=== PATIENT | female | born 1980 | race Caucasian/White ===

== ENCOUNTER 2018-05-03 09:45 | Outpatient (REF) | payer OTHER, SELFPAY ==
--- NOTE | 2018-05-03 09:00 | PAPFT_PTH ---
PATIENT: Estefania Castaneda LOC: [facility] U#:[id number] AGE/SX: 37/F ROOM: RE05/03/[address]: JUAN M Cruz : 1980 BED: DIS: 05/03/2018 SPEC #: [id number] RECD: 05/03/18 12:46 STATUS: SENTHIL REQ #: [id number] KAREN: 05/03/18 09:[address]: Adeline Munoz DEPT: [facility] Cytology RECD BY: Rossy Stone ENTERED: 05/03/18 12:46 SP TYPE: PAPFT OTHR DR: Esperanza Whitehead Tissues: 1 - CX/ENDOCX FOR PAP SMEARS Procedures: PAP THIN PREP/UVM Screening Comments: [id number]
[2018-05-04 13:11] LABS: Chlamydia Result Negative; GC Result Negative; Specimen Description CERVIX
== END 2018-05-03 10:05 ==
LOC: LBN 09:45
PROVIDERS: PCP Family Medicine; Visit Provider Nurse Practitioner Family
DX: Z11.3 Encounter for screening for infections with a predominantly sexual mode of transmission (principal); Z12.4 Encounter for screening for malignant neoplasm of cervix
CPT/HCPCS: 87491; 87591; 88142

== ENCOUNTER 2018-09-26 00:42 | Outpatient (CLI) | payer OTHER, SELFPAY ==
--- NOTE | 2018-09-26 12:30 | DI.MAMMO_ITS ---
SYMPTOMS/DIAGNOSIS: SCREENING, Z12.31 MAMMOGRAMS: Mammograms were interpreted according to the usual protocol including computer analysis with CAD system, tomosynthesis and C view imaging. Comparison is with the prior examinations. No suspicious masses or microcalcifications are seen. There is a left retroareolar nodule again present with a biopsy clip in stable position. Overall, there has been significant change in appearance of the mammogram compared to the prior examination. IMPRESSION: No evidence for malignancy. Yearly mammography is recommended. Category 2, breast density B. MQSA ASSESSMENT OF FINDINGS: Negative with benign findings. Category 2. Patient will receive a letter notifying them of these results. BI-RADS category B. There are scattered areas of fibroglandular density.
== END 2018-09-26 01:02 ==
PROVIDERS: PCP Family Medicine; Visit Provider Nurse Practitioner Family
DX: Z12.31 Encounter for screening mammogram for malignant neoplasm of breast (principal)
CPT/HCPCS: 77063; 77067

== ENCOUNTER 2019-05-27 09:37 | Outpatient (REF) | payer OTHER, SELFPAY ==
--- NOTE | 2019-05-27 08:50 | PAPFT_PTH ---
PATIENT: Estefania Castaneda LOC: [facility] U#:[id number] AGE/SX: 38/F ROOM: RE05/27/[address]: Tracy George NP : 1980 BED: DIS: 05/27/2019 SPEC #: [id number] RECD: 05/27/19 12:54 STATUS: MOISÉSEsthela REDora #: [id number] KAREN: 05/27/19 08:[address]: Tracy George NP DEPT: [facility] Cytology RECD BY: Rossy Stone ENTERED: 05/27/19 12:55 SP TYPE: PAPFT OTHR DR: Esperanza Whitehead Tissues: 1 - CX/ENDOCX FOR PAP SMEARS Procedures: PAP THIN PREP/UVM Screening HPV DNA PROBE Comments: [id number]
== END 2019-05-27 09:57 ==
LOC: LBN 09:37
PROVIDERS: PCP Family Medicine; Visit Provider Nurse Practitioner Women's Health
DX: Z12.4 Encounter for screening for malignant neoplasm of cervix (principal); Z11.51 Encounter for screening for human papillomavirus (HPV)
CPT/HCPCS: 88142; 87624

== ENCOUNTER 2019-10-03 01:21 | Outpatient (CLI) | payer OTHER, SELFPAY ==
--- NOTE | 2019-10-03 09:19 | DI.MAMMO_ITS ---
EXAM: MG MAMMO SCREENING CLINICAL HISTORY: screening,z12.39, family h/o breast ca,z80.3 TECHNIQUE: Bilateral full field digital CC and MLO mammographic images were obtained with 3D tomosyn thesis and utilizing computer aided detection (CAD). COMPARISON: Available for comparison. FINDINGS: Masses/Architectural Distortion: There is again seen a retroareolar nodule with a biopsy clip in good position. No suspicious nodules are seen. Microcalcifications: No suspicious pleomorphic-type are seen. Skin Thickening/Nipple Retraction: None. IMPRESSION: 1. No significant interval change with no specific features of malignancy noted. 2. Unless there is more urgent need, screening mammography is recommended, as per [employer] [employer] guidelines. BI-RADS Category 2 - Benign Findings Breast Density - Category B - Scattered areas of fibroglandular density A negative radiographic report should not delay biopsy if a dominant or clinically suspicious mass is present. Up to ten percent of cancers are not identified on mammography. A negative report may reinforce clinical impression. Adenosis and dense breasts may obscure an underlying neoplasm. False positive reports average 6 to 10%. Patient will receive a letter notifying them of these results.
== END 2019-10-03 01:41 ==
PROVIDERS: PCP Family Medicine; Visit Provider Nurse Practitioner Women's Health
DX: Z12.31 Encounter for screening mammogram for malignant neoplasm of breast (principal); Z80.3 Family history of malignant neoplasm of breast
CPT/HCPCS: 77063; 77067

== ENCOUNTER 2020-01-27 18:17 | Outpatient (REF) | payer OTHER, SELFPAY ==
[2020-01-27 18:49] LABS: HCT 40.7 % (36.0-46.0); HGB 13.3 g/dL (11.2-15.7); MCH 28.1 pg (27.0-33.0); MCHC 32.7 % (32.0-36.0); MCV 85.9 fL (80-95); MPV 9.6 fL (8.0-11.0); Platelet Count 407 10^3/uL (130-400); RBC 4.74 10^6/uL (3.93-5.22); RDW 13.9 % (11.7-14.6)
[2020-01-27 19:24] LABS: Hemoglobin A1C 5.4 % (<5.7)
[2020-01-27 19:32] LABS: Anion Gap 9.8 mmol/L (3-11); BUN 13 mg/dL (7-18); CO2 26.2 mmol/L (21.0-32.0); CREATININE 0.65 mg/dL (0.55-1.02); Calcium 10.1 mg/dL (8.5-10.1); Chloride 103 mmol/L (98-107); Glucose 77 mg/dL (74-106); Potassium 4.1 mmol/L (3.5-5.1); Sodium 139 mmol/L (136-145); TSH (W/Ref FT4) 2.34 uIU/mL (0.36-3.74)
== END 2020-01-27 18:37 ==
LOC: NCHCN 18:17
PROVIDERS: PCP Family Medicine; Visit Provider Family Medicine
DX: R00.2 Palpitations (principal)
CPT/HCPCS: 80048; 85027; 83036; 84443

== ENCOUNTER 2020-01-29 01:30 | Outpatient (CLI) | payer OTHER, SELFPAY | END 2020-01-29 01:50 | PROVIDERS: PCP Family Medicine; Visit Provider Family Medicine | DX: R00.2 Palpitations (principal) | CPT/HCPCS: 93225 ==

== ENCOUNTER 2020-01-31 16:26 | Outpatient (CLI) | payer OTHER, SELFPAY ==
--- NOTE | 2020-02-03 10:02 | W.HOLTRPT ---
Date of service: 02/03/20 Time of Service: 10:02 Holter Monitor Report Referring Provider:: jase Indications:: palps Holter Monitor Note: This is a 48-hour Holter monitor with indication of palpitations. ?Patient was in normal sinus rhythm for the majority of the recording with an average heart rate of 90 bpm (60-138 bpm) ?There were 0 episodes of supraventricular tachycardia. There were rare PACs and PVCs. ?There are no episodes of ventricular tachycardia ?There are no episodes of atrial fibrillation, pauses greater than 3 seconds and no evidence of high degree heart block. ?Patient diary events described as palpitations were associated with normal sinus rhythm or sinus tachycardia
== END 2020-01-31 16:46 ==
PROVIDERS: PCP Family Medicine; Visit Provider Family Medicine
DX: R00.2 Palpitations (principal)
CPT/HCPCS: 93226

== ENCOUNTER 2020-10-05 01:02 | Outpatient (CLI) | payer OTHER, SELFPAY ==
--- NOTE | 2020-10-05 08:45 | DI.MAMMO_ITS ---
Exam(s) MAMMO SCREENING EXAM: MAMMO SCREENING CLINICAL HISTORY: screening,z12.39. TECHNIQUE: Bilateral full field digital CC and MLO mammographic images were obtained with 3D tomosyn thesis and utilizing computer aided detection (CAD). COMPARISON: Prior mammograms dating back to 2017, the most recent being September 2019. This 39-year-old patient underwent left breast biopsy approximately 3 years ago, apparently benign. FINDINGS: There has been no significant change in appearance and distribution of the fibroglandular tissue. Biopsy marker clip is again noted anteriorly within a small nodule in the left breast and this remain s unchanged in size and configuration. There are no new spiculated masses nor malignant appearing microcalcification groups. Small benign-appearing nodules posteriorly in both breasts are unchanged from prior studies and have appearance of benign intramammary lymph nodes. Posteriorly in the right breast there is a CAD design ation over benign calcification. There are no new malignant-appearing microcalcification groups in e ither breast. There is no significant architectural distortion nor skin thickening-retraction. IMPRESSION: No radiographic evidence of malignancy. Stable benign findings BI-RADS Category 2 - Benign Findings Breast Density - Category B - Scattered areas of fibroglandular density Breast density Category C or D implies that the patient has dense breast tissue. Dense breast tissue can make it harder to find cancer on a mammogram. Dense breast tissue is also associated with an incr eased risk of breast cancer. This information about the result of the mammogram report was provided to the patient to raise their awareness. Use this report when you speak with the patient about their risks for breast cancer, which includes their family history. At that time, you may recommend additional screening tests (Ultrasoun d or MRI) as these tests may add significant information. A negative radiographic report should not delay biopsy if a dominant or clinically suspicious mass is present. Up to ten percent of cancers are not identified on mammography. A negative report may reinforce clinical impression. Adenosis and dense breasts may obscure an underlying neoplasm. False positive reports average 6 to 10%. Patient will receive a letter notifying them of these results.
== END 2020-10-05 01:22 ==
PROVIDERS: PCP Family Medicine; Visit Provider Nurse Practitioner Family
DX: Z12.31 Encounter for screening mammogram for malignant neoplasm of breast (principal); Z80.3 Family history of malignant neoplasm of breast
CPT/HCPCS: 77063; 77067

== ENCOUNTER 2021-01-08 09:47 | Outpatient (REF) | payer OTHER, SELFPAY ==
[2021-01-09 01:42] LABS: COVID-19 RT-PCR UVMMC Result Negative (Negative)
== END 2021-01-08 09:48 | disposition home or self-care (01) ==
LOC: LBO 09:47
PROVIDERS: PCP Family Medicine; Visit Provider Nurse Practitioner Family
DX: Z20.822 Contact with and (suspected) exposure to COVID-19 (principal)
CPT/HCPCS: U0003

== ENCOUNTER 2021-02-26 11:49 | Outpatient (CLI) | payer OTHER, SELFPAY ==
[2021-02-27 03:54] LABS: COVID-19 RT-PCR UVMMC Result Negative (Negative)
== END 2021-02-26 11:50 | disposition home or self-care (01) ==
LOC: LBO 11:51
PROVIDERS: PCP Family Medicine; Visit Provider Nurse Practitioner Family
DX: Z20.822 Contact with and (suspected) exposure to COVID-19 (principal)
CPT/HCPCS: U0003

== ENCOUNTER → 2021-10-07 02:26 | Outpatient (CLI) | payer OTHER, SELFPAY ==
--- NOTE | 2021-10-07 06:30 | DI.MAMMO_ITS ---
Exam(s) MAMMO SCREENING EXAM: MAMMO SCREENING CLINICAL HISTORY: screening,z12.39. TECHNIQUE: Bilateral full field digital CC and MLO mammographic images were obtained with 3D tomosyn thesis and utilizing computer aided detection (CAD). COMPARISON: Prior mammograms were reviewed, the most recent being September 2020. FINDINGS: There has been no significant change in the appearance and distribution of the fibroglandular tissue. Biopsy marker clips again noted in a stable appearing nodule in the retroareolar region of the breast . There are no new spiculated masses nor malignant appearing microcalcification groups. Benign-appearing calcification posteriorly in the right breast is unchanged prior studies. There is no significant architectural distortion nor skin thickening-retraction. IMPRESSION: No radiographic evidence of malignancy. BI-RADS Category 1 - Negative Breast Density - Category B - Scattered areas of fibroglandular density Breast density Category C or D implies that the patient has dense breast tissue. Dense breast tissue can make it harder to find cancer on a mammogram. Dense breast tissue is also associated with an incr eased risk of breast cancer. This information about the result of the mammogram report was provided to the patient to raise their awareness. Use this report when you speak with the patient about their risks for breast cancer, which includes their family history. At that time, you may recommend additional screening tests (Ultrasoun d or MRI) as these tests may add significant information. A negative radiographic report should not delay biopsy if a dominant or clinically suspicious mass is present. Up to ten percent of cancers are not identified on mammography. A negative report may reinforce clinical impression. Adenosis and dense breasts may obscure an underlying neoplasm. False positive reports average 6 to 10%. Patient will receive a letter notifying them of these results.
== END ==
PROVIDERS: PCP Family Medicine; Visit Provider Nurse Practitioner Family
DX: Z12.31 Encounter for screening mammogram for malignant neoplasm of breast (principal)
CPT/HCPCS: 77063; 77067

== ENCOUNTER 2022-02-08 16:49 | Outpatient (REF) | payer OTHER, SELFPAY | END 2022-02-08 16:50 | disposition home or self-care (01) | LOC: LBN 16:49 | PROVIDERS: PCP Family Medicine; Visit Provider Obstetrics & Gynecology | DX: N94.89 Other specified conditions associated with female genital organs and menstrual cycle (principal); N76.0 Acute vaginitis | CPT/HCPCS: 87480; 87510; 87660 ==

== ENCOUNTER 2022-11-09 09:26 | Outpatient (REF) | payer OTHER, SELFPAY ==
--- NOTE | 2022-11-09 09:00 | PAPFT_PTH ---
PATIENT: Estefania Castaneda LOC: [facility] U#:[id number] AGE/SX: 41/F ROOM: RE11/09/[address]: Tracy George NP : 1980 BED: DIS: 11/09/2022 SPEC #: [id number] RECD: 11/09/22 15:02 STATUS: SENTHIL PERALTA #: [id number] KAREN: 11/09/22 09:[address]: Tracy George NP DEPT: [facility] Cytology RECD BY: Little Lomas ENTERED: 11/09/22 15:02 SP TYPE: PAPFT OTHR DR: Esperanza Whitehead Tissues: 1 - CX/ENDOCX FOR PAP SMEARS Procedures: PAP THIN PREP/UVM Screening HPV DNA PROBE Comments: [id number]
== END 2022-11-09 09:27 | disposition home or self-care (01) ==
LOC: LBN 09:26
PROVIDERS: PCP Family Medicine; Visit Provider Nurse Practitioner Women's Health
DX: Z11.51 Encounter for screening for human papillomavirus (HPV) (principal)
CPT/HCPCS: 88142; 87624

== ENCOUNTER 2022-11-10 00:35 | Outpatient (CLI) | payer OTHER, SELFPAY ==
--- NOTE | 2022-11-10 07:15 | DI.MAMMO_ITS ---
Exam(s) MAMMO SCREENING EXAM: MAMMO SCREENING CLINICAL HISTORY: screening,z12.39 TECHNIQUE: Bilateral full field digital CC and MLO mammographic images were obtained with 3D tomosyn thesis and utilizing computer aided detection (CAD). COMPARISON: Available for comparison. FINDINGS: Masses/Architectural Distortion: None seen. There is again seen a nodule in the retroareolar region o f the left breast with a biopsy clip in place. No new nodules are seen. Microcalcifications: No suspicious pleomorphic-type are seen. Skin Thickening/Nipple Retraction: None. IMPRESSION: 1. No significant interval change with no specific features of malignancy noted. 2. Unless there is more urgent need, screening mammography is recommended, as per [employer] guidelines. BI-RADS Category 2 - Benign Findings Breast Density - Category B - Scattered areas of fibroglandular density Breast density category C or D implies that the patient has dense breast tissue. Dense breast tissue is very common and is not abnormal but dense breast tissue can make it harder to find cancer on a ma mmogram. Also, dense breast tissue may increase their breast cancer risk. This information about the result of the mammogram report was provided to the patient to raise their awareness. Use this report when you speak with the patient about their risks for breast cancer, which includes their family hist ory. At that time, you may recommend for more screening tests (Ultrasound or MRI) as they might be us eful based on their risk. A negative radiographic report should not delay biopsy if a dominant or clinically suspicious mass is present. Up to ten percent of cancers are not identified on mammography. A negative report may reinforce clinical impression. Adenosis and dense breasts may obscure an underlying neoplasm. False positive reports average 6 to 10%. Patient will receive a letter notifying them of these results.
== END 2022-11-10 00:55 ==
PROVIDERS: PCP Family Medicine; Visit Provider Nurse Practitioner Women's Health
DX: Z12.31 Encounter for screening mammogram for malignant neoplasm of breast (principal)
CPT/HCPCS: 77063; 77067

== ENCOUNTER 2023-02-17 15:21 | Outpatient (REF) | payer OTHER, SELFPAY ==
[2023-02-17 19:11] LABS: Abs Immature Grans 0.02 10^3/uL (0.0-0.06); Absolute Basophil Count 0.06 10^3/uL (0.0-0.2); Absolute Eosinophil Count 0.22 10^3/uL (0.0-0.7); Absolute Lymphocyte Count 2.52 10^3/uL (1.2-3.4); Absolute Monocyte Count 0.44 10^3/uL (0.1-0.8); Absolute Neutrophil Count 5.62 10^3/uL (1.2-6.7); Basophils % 0.7; Eosinophils % 2.5; HCT 39.6 % (36.0-46.0); HGB 13.1 g/dL (11.2-15.7); Immature Grans % 0.2; Lymphocytes % 28.4; MCH 28.4 pg (27.0-33.0); MCHC 33.1 % (32.0-36.0); MCV 86 fL (80-95); MPV 9.6 fL (8.0-11.0); Neutrophils % 63.2; Platelet Count 443 10^3/uL (130-400); RBC 4.61 10^6/uL (3.93-5.22); RDW 13.8 % (11.7-14.6); RDW-SD 43.2 fL; WBC 8.88 10^3/uL (4.4-10.8)
== END 2023-02-17 15:22 | disposition home or self-care (01) ==
LOC: NCHCN 15:21
PROVIDERS: PCP Family Medicine; Visit Provider Family Medicine
DX: R59.1 Generalized enlarged lymph nodes (principal)
CPT/HCPCS: 85025

== ENCOUNTER 2023-03-29 14:38 | Outpatient (REF) | payer OTHER, SELFPAY ==
[2023-03-30 15:46] LABS: Chlamydia Result Negative (Negative); GC Result Negative (Negative)
== END 2023-03-29 14:39 | disposition home or self-care (01) ==
LOC: LBN 14:38
PROVIDERS: PCP Family Medicine; Visit Provider Advanced Practice Midwife
DX: Z11.3 Encounter for screening for infections with a predominantly sexual mode of transmission (principal); N76.0 Acute vaginitis
CPT/HCPCS: 87491; 87591; 87480; 87510; 87660

== ENCOUNTER 2023-03-29 15:19 | Outpatient (CLI) | payer OTHER, SELFPAY ==
[2023-03-30 20:01] LABS: Hepatitis B Surface Ag Negative (Negative)
[2023-03-30 20:33] LABS: Hepatitis C Ab w Rflx HCV PCR Negative (Negative)
[2023-03-31 09:54] LABS: Syphilis Serology (RPR) Negative (Negative)
[2023-03-31 10:00] LABS: HSV Type 1 Ab, IgG Negative (Negative); HSV Type 2 Ab, IgG Positive (Negative)
== END 2023-03-29 15:20 | disposition home or self-care (01) ==
LOC: LBO 15:19
PROVIDERS: PCP Family Medicine; Visit Provider Advanced Practice Midwife
DX: B00.9 Herpesviral infection, unspecified (principal); Z11.3 Encounter for screening for infections with a predominantly sexual mode of transmission
CPT/HCPCS: 36415; 86803; 87340; 86592; 86695; 86696

== ENCOUNTER 2023-04-03 18:29 | Outpatient (CLI) | payer OTHER, SELFPAY ==
[2023-04-03 18:40] LABS: HIV-1/2 Ag & Ab Screen Negative (Negative)
== END 2023-04-03 18:30 | disposition home or self-care (01) ==
LOC: LBO 18:30
PROVIDERS: PCP Family Medicine; Visit Provider Advanced Practice Midwife
DX: Z11.3 Encounter for screening for infections with a predominantly sexual mode of transmission (principal)
CPT/HCPCS: 36415; 87389

== ENCOUNTER 2023-06-05 12:23 | Outpatient (REF) | payer OTHER, SELFPAY ==
[2023-06-06 12:46] LABS: Chlamydia Result Negative (Negative); GC Result Negative (Negative)
== END 2023-06-05 12:24 | disposition home or self-care (01) ==
LOC: LBN 12:23
PROVIDERS: PCP Family Medicine; Visit Provider Advanced Practice Midwife
DX: N89.8 Other specified noninflammatory disorders of vagina (principal); Z11.3 Encounter for screening for infections with a predominantly sexual mode of transmission
CPT/HCPCS: 87491; 87591; 87480; 87510; 87660

== ENCOUNTER 2023-06-05 15:20 | Outpatient (CLI) | payer OTHER, SELFPAY ==
[2023-06-06 11:21] LABS: Hepatitis B Surface Ag Negative (Negative)
[2023-06-06 11:43] LABS: HIV-1/2 Ag & Ab Screen Negative (Negative)
[2023-06-06 12:07] LABS: Hepatitis C Ab w Rflx HCV PCR Negative (Negative)
[2023-06-07 20:41] LABS: Syphilis IgG w/Reflex Nonreactive (Nonreactive)
== END 2023-06-05 15:21 | disposition home or self-care (01) ==
LOC: LBO 15:22
PROVIDERS: PCP Family Medicine; Visit Provider Advanced Practice Midwife
DX: Z11.3 Encounter for screening for infections with a predominantly sexual mode of transmission (principal); Z11.4 Encounter for screening for human immunodeficiency virus [HIV]; Z11.59 Encounter for screening for other viral diseases
CPT/HCPCS: 36415; 86803; 87340; 87389; 86780

== ENCOUNTER 2023-06-12 13:41 | Outpatient (CLI) | payer OTHER, SELFPAY ==
[2023-06-12 18:21] LABS: Hepatitis B Surface Ag Negative (Negative)
[2023-06-12 18:52] LABS: HIV-1/2 Ag & Ab Screen Negative (Negative); Hepatitis C Ab w Rflx HCV PCR Negative (Negative)
[2023-06-14 16:33] LABS: Syphilis IgG w/Reflex Nonreactive (Nonreactive)
== END 2023-06-12 13:42 | disposition home or self-care (01) ==
LOC: LBO 13:41
PROVIDERS: PCP Family Medicine; Visit Provider Advanced Practice Midwife
DX: Z11.3 Encounter for screening for infections with a predominantly sexual mode of transmission (principal)
CPT/HCPCS: 36415; 86803; 87340; 87389; 86780

== ENCOUNTER 2023-06-15 01:36 | Outpatient (CLI) | payer OTHER, SELFPAY ==
[2023-06-15 19:39] LABS: HIV-1/2 Ag & Ab Screen Negative (Negative)
== END 2023-06-15 01:37 | disposition home or self-care (01) ==
LOC: LBO 01:37
PROVIDERS: PCP Family Medicine; Visit Provider Advanced Practice Midwife
DX: Z11.3 Encounter for screening for infections with a predominantly sexual mode of transmission (principal)
CPT/HCPCS: 36415; 86803; 87340; 87389; 86592

== ENCOUNTER 2023-06-19 12:27 | Outpatient (CLI) | payer OTHER, SELFPAY ==
[2023-06-19 18:47] LABS: HIV-1/2 Ag & Ab Screen Negative (Negative)
== END 2023-06-19 12:28 | disposition home or self-care (01) ==
LOC: LBO 12:27
PROVIDERS: PCP Family Medicine; Visit Provider Advanced Practice Midwife
DX: Z11.3 Encounter for screening for infections with a predominantly sexual mode of transmission (principal)
CPT/HCPCS: 36415; 87389

== ENCOUNTER 2023-07-03 08:52 | Outpatient (CLI) | payer OTHER, SELFPAY ==
[2023-07-03 19:34] LABS: Hepatitis B Surface Ag Negative (Negative)
[2023-07-03 20:04] LABS: Hepatitis C Ab w Rflx HCV PCR Negative (Negative)
[2023-07-03 20:29] LABS: HIV-1/2 Ag & Ab Screen Negative (Negative)
[2023-07-04 10:33] LABS: Syphilis Serology (RPR) Negative (Negative)
== END 2023-07-03 08:53 | disposition home or self-care (01) ==
LOC: LBO 08:53
PROVIDERS: Advanced Practice Midwife; PCP Family Medicine; Visit Provider Advanced Practice Midwife
DX: Z11.3 Encounter for screening for infections with a predominantly sexual mode of transmission (principal); Z11.4 Encounter for screening for human immunodeficiency virus [HIV]; Z11.59 Encounter for screening for other viral diseases
CPT/HCPCS: 36415; 86803; 87340; 87389; 86592

== ENCOUNTER 2023-07-12 15:07 | Outpatient (REF) | payer OTHER, SELFPAY ==
[2023-07-12 15:41] LABS: Anion Gap 14.8 mmol/L (3-11); BUN 13 mg/dL (7-18); CO2 22.2 mmol/L (21.0-32.0); CREATININE 0.8 mg/dL (0.55-1.02); Calcium 9.4 mg/dL (8.5-10.1); Calculated LDL 146 mg/dL (<100); Chloride 105 mmol/L (98-107); Cholesterol 255 mg/dL (<200); Estimated GFR 95.46 (mL/min/1.73m2); Glucose 88 mg/dL (74-106); HDL Cholesterol 77 mg/dL (40-60); Potassium 4.3 mmol/L (3.5-5.1); Sodium 142 mmol/L (136-145); Triglyceride 162 mg/dL (<150)
== END 2023-07-12 15:08 | disposition home or self-care (01) ==
LOC: NCHCN 15:07
PROVIDERS: PCP Family Medicine; Visit Provider Family Medicine
DX: Z13.220 Encounter for screening for lipoid disorders (principal); I10 Essential (primary) hypertension
CPT/HCPCS: 80048; 80061

== ENCOUNTER → 2023-11-17 09:08 | Outpatient (CLI) | payer OTHER, SELFPAY ==
--- NOTE | 2023-11-17 15:00 | DI.MAMMO_ITS ---
Exam(s) MAMMO SCREENING EXAM: MAMMO SCREENING CLINICAL HISTORY: screening Z12.39 TECHNIQUE: Bilateral full field digital CC and MLO mammographic images were obtained with 3D tomosyn thesis and utilizing computer aided detection (CAD). COMPARISON: Available for comparison. FINDINGS: Masses/Architectural Distortion: The nodule in the retroareolar region of the left breast appears unc hanged. There is again seen a biopsy clip within the nodule. No new nodules are seen. No areas of architectural distortion are present. Microcalcifications: No suspicious pleomorphic-type are seen. Skin Thickening/Nipple Retraction: None. IMPRESSION: 1. No significant interval change with no specific features of malignancy noted. 2. Unless there is more urgent need, screening mammography is recommended, as per [place] [employer] guidelines. BI-RADS Category 2 - Benign Findings Breast Density - Category B - Scattered areas of fibroglandular density Breast density category C or D implies that the patient has dense breast tissue. Dense breast tissue is very common and is not abnormal but dense breast tissue can make it harder to find cancer on a ma mmogram. Also, dense breast tissue may increase their breast cancer risk. This information about the result of the mammogram report was provided to the patient to raise their awareness. Use this report when you speak with the patient about their risks for breast cancer, which includes their family hist ory. At that time, you may recommend for more screening tests (Ultrasound or MRI) as they might be us eful based on their risk. A negative radiographic report should not delay biopsy if a dominant or clinically suspicious mass is present. Up to ten percent of cancers are not identified on mammography. A negative report may reinforce clinical impression. Adenosis and dense breasts may obscure an underlying neoplasm. False positive reports average 6 to 10%. Patient will receive a letter notifying them of these results.
== END ==
PROVIDERS: PCP Family Medicine; Visit Provider Nurse Practitioner Women's Health
DX: Z12.39 Encounter for other screening for malignant neoplasm of breast (principal); Z12.31 Encounter for screening mammogram for malignant neoplasm of breast
CPT/HCPCS: 77063; 77067

== ENCOUNTER 2023-12-26 09:39 | Outpatient (CLI) | payer OTHER, SELFPAY ==
[2023-12-27 10:48] LABS: Hepatitis C Ab w Rflx HCV PCR Negative (Negative)
[2023-12-27 11:01] LABS: HIV-1/2 Ag & Ab Screen Negative (Negative)
[2023-12-27 11:42] LABS: Chlamydia Result Negative (Negative); GC Result Negative (Negative)
[2023-12-28 14:52] LABS: Syphilis IgG w/Reflex Nonreactive (Nonreactive)
== END 2023-12-26 09:40 | disposition home or self-care (01) ==
LOC: LBO 09:39
PROVIDERS: PCP Family Medicine; Visit Provider Nurse Practitioner Women's Health
DX: Z11.3 Encounter for screening for infections with a predominantly sexual mode of transmission (principal)
CPT/HCPCS: 36415; 86803; 87389; 87491; 87591; 86780

== ENCOUNTER 2024-11-20 02:25 | Outpatient (CLI) | payer OTHER, SELFPAY ==
--- NOTE | 2024-11-20 12:15 | DI.MAMMO_ITS ---
Exam(s) MAMMO SCREENING EXAM: MAMMO SCREENING CLINICAL HISTORY: screening TECHNIQUE: Mammograms were interpreted according to the usual protocol including computer analysis with CAD system, tomosynthesis and C-view imaging. COMPARISON: 2016 through 2023 FINDINGS: The breasts are composed of scattered fibroglandular densities, Breast Density category B. No suspicious masses or suspicious microcalcifications are seen. Stable nodule in the subareolar region of the left breast with biopsy marker. No skin thickening or abnormal axillary lymph nodes are seen. There has been no significant change from prior exams. IMPRESSION: BI-RADS Category 2 - Benign Findings Yearly screening mammography is recommended. Breast Density - Category B - There are scattered areas of fibroglandular density. Breast density Category C or D implies that the patient has dense breast tissue. Dense breast tissue can make it harder to find cancer on a mammogram. Dense breast tissue is also associated with an increased risk of breast cancer. This information about the result of the mammogram report was provided to the patient to raise their awareness. Use this report when you speak with the patient about their risks for breast cancer, which includes their family history. At that time, you may recommend additional screening tests (Ultrasound or MRI) as these tests may add significant information. A negative radiographic report should not delay biopsy if a dominant or clinically suspicious mass is present. Up to ten percent of cancers are not identified on mammography. A negative report may reinforce clinical impression. Adenosis and dense breasts may obscure an underlying neoplasm. False positive reports average 6 to 10%. Patient will receive a letter notifying them of these results.
== END 2024-11-20 02:45 ==
LOC: DI 02:25
PROVIDERS: PCP Family Medicine; Visit Provider Nurse Practitioner Women's Health
DX: Z12.31 Encounter for screening mammogram for malignant neoplasm of breast (principal); R92.323 Mammographic fibroglandular density, bilateral breasts
CPT/HCPCS: 77063; 77067

== ENCOUNTER 2025-01-03 16:02 | Outpatient (REF) | payer OTHER, SELFPAY ==
[2025-01-03 18:22] LABS: ALT 19 U/L (14-59); AST 14 U/L (15-37); Albumin 3.5 g/dL (3.4-5.0); Alkaline Phosphatase 89 U/L (46-116); Anion Gap 12.0 mmol/L (3-11); BUN 16 mg/dL (7-18); Bilirubin, Total 0.2 mg/dL (0.2-1.0); CO2 25.0 mmol/L (21.0-32.0); Calcium 9.7 mg/dL (8.5-10.1); Chloride 103 mmol/L (98-107); Estimated GFR 110.67 (mL/min/1.73m2); Glucose 87 mg/dL (74-106); Potassium 4.0 mmol/L (3.5-5.1); Sodium 140 mmol/L (136-145); TSH (W/Ref FT4) 2.49 uIU/mL (0.36-3.74); Total Protein 7.6 g/dL (6.4-8.2)
== END 2025-01-03 16:03 | disposition home or self-care (01) ==
LOC: NCHCN 16:02
PROVIDERS: PCP Family Medicine; Visit Provider Family Medicine
DX: I10 Essential (primary) hypertension (principal); R63.5 Abnormal weight gain; E66.01 Morbid (severe) obesity due to excess calories
CPT/HCPCS: 80053; 84443

== ENCOUNTER 2025-03-25 13:24 | Outpatient (CLI) | payer OTHER, SELFPAY ==
[2025-03-25 14:58] LABS: Anion Gap 11.1 mmol/L (3-11); BUN 9 mg/dL (9-23); CO2 24.9 mmol/L (20.0-31.0); Calcium 9.4 mg/dL (8.3-10.6); Chloride 106 mmol/L (98-107); Glucose 99 mg/dL (74-106); Potassium 3.4 mmol/L (3.5-5.1); Sodium 142 mmol/L (136-145)
== END 2025-03-25 13:25 | disposition home or self-care (01) ==
PROVIDERS: PCP Family Medicine; Visit Provider Family Medicine
DX: I10 Essential (primary) hypertension (principal); R63.5 Abnormal weight gain; E66.01 Morbid (severe) obesity due to excess calories
CPT/HCPCS: 36415; 80048